=== PATIENT | female | born 1960 | race African-American/Black ===

== ENCOUNTER 2021-10-06 13:31 | Inpatient (IN) | payer MEDICAID ==
[~2021-10-06] VITALS: Ht 157.5 cm; Wt 81.2 kg
[2021-10-06] MEDS ORDERED: ACETAMINOPHEN 325MG TABLET PO ONE (13:45)
[2021-10-06 14:58] LABS: BASOPHILS % 0.6 % (0.0-2.0); EOSINOPHILS % 0.8 % (0.0-5.0); HEMATOCRIT. 44.8 % (36.0-48.0); HEMOGLOBIN. 14.3 g/dL (12.0-16.0); LYMPHOCYTES % 46.5 % (20.0-50.0); MEAN CORPUSCULAR HEMOGLOBIN 24.5 pg (28.0-32.0); MEAN CORPUSCULAR VOLUME 76.9 fL (81.0-99.0); MEAN PLATELET VOLUME 7.5 fl (7.4-10.4); MONOCYTES % 6.1 % (2.0-8.0); PLATELET 322 x1000/uL (130-400); RED BLOOD CELL COUNT 5.83 mill/uL (4.2-5.4)
[2021-10-06 15:04] LABS: CHLORIDE 99 mEq/L (98-107)
[2021-10-06] MEDS ORDERED: IBUP-2029 MT (18:10)
[2021-10-07] MEDS ORDERED: ACETAMINOPHEN 325MG TABLET PO SCH (06:15)
[2021-10-07] MEDS ORDERED: NALOXONE HCL 0.4MG/ML VIAL IV PRN (08:45)
[2021-10-07] MEDS ORDERED: ONDANSETRON HCL 4MG/2ML INJ IV PRN (08:45)
[2021-10-07] MEDS ORDERED: ACETAMINOPHEN 325MG TABLET PO PRN (08:45)
[2021-10-07 12:00] VITALS: BP 153/53
[2021-10-07 12:27] VITALS: BP 153/53
[2021-10-07 16:00] VITALS: BP 161/49
[2021-10-07] MEDS: HYDROCODONE/ACETAMINOPHEN 5/325MG TABLET PO PRN (19:36)
[2021-10-07 20:00] VITALS: BP_SYST 120; BP_SYST 167; BP_DIAS 60
[2021-10-08] VITALS: BP 120/60
[2021-10-08 04:00] VITALS: BP 170/59
[2021-10-08] MEDS: HYDROCODONE/ACETAMINOPHEN 5/325MG TABLET PO PRN ×2 (04:11→09:36)
[2021-10-08 08:00] VITALS: BP 153/59
[2021-10-08 12:00] VITALS: BP 151/48
[2021-10-08 13:34] VITALS: BP 151/48
[2021-10-09] MEDS ORDERED: LISINOPRIL 10MG TABLET PO SCH (09:00)
== END 2021-10-08 15:30 | disposition home or self-care (01) | DRG 342 ==
LOC: ER 13:49 → MICUSO 22:02 → 8WST 10-07 10:03
PROVIDERS: ADMIT Internal Medicine; ATTEND Internal Medicine
PROC: 0HQ1XZZ Repair Face Skin, External Approach (ICD-10-PCS; principal; 2021-10-06)
PROC: 0HQ1XZZ Repair Face Skin, External Approach (ICD-10-PCS; 2021-10-06)
PROC: 0HQ1XZZ Repair Face Skin, External Approach (ICD-10-PCS; 2021-10-06)
PROC: 0HQ1XZZ Repair Face Skin, External Approach (ICD-10-PCS; 2021-10-06)
PROC: 0QSJXZZ Reposition Right Fibula, External Approach (ICD-10-PCS; 2021-10-06)
DX: S82.61XA Displaced fracture of lateral malleolus of right fibula, initial encounter for closed fracture (principal); G90.8 Other disorders of autonomic nervous system; E11.9 Type 2 diabetes mellitus without complications; S01.21XA Laceration without foreign body of nose, initial encounter; S01.112A Laceration without foreign body of left eyelid and periocular area, initial encounter; E66.9 Obesity, unspecified; I10 Essential (primary) hypertension; S01.412A Laceration without foreign body of left cheek and temporomandibular area, initial encounter; Z20.822 Contact with and (suspected) exposure to COVID-19; W07.XXXA Fall from chair, initial encounter; S01.411A Laceration without foreign body of right cheek and temporomandibular area, initial encounter; Y93.89 Activity, other specified; Y92.89 Other specified places as the place of occurrence of the external cause; Y99.8 Other external cause status; Z83.3 Family history of diabetes mellitus; Z88.6 Allergy status to analgesic agent; Z68.32 Body mass index [BMI] 32.0-32.9, adult; Z71.3 Dietary counseling and surveillance
CPT/HCPCS: 36415; 71045; 73610; 80053; 82962; 83036; 83880; 84484; 85025; 87426; 93005; 93306; 93880; 97116; 97161; 99285

== ENCOUNTER 2024-01-11 19:07 | Emergency (ER) | payer MEDICAID ==
[~2024-01-11] VITALS: Ht 154.9 cm; Wt 82.0 kg
[~2024-01-11 19:07] MED LIST: IBUP-2029 MT
[2024-01-11 19:09] VITALS: BP 180/53; PULSE 63; RESP 16; TEMP 98.6; O2SAT 100
== END 2024-01-11 23:09 | disposition left against medical advice (07) ==
LOC: ER 19:07
DX: R42 Dizziness and giddiness (principal); Z53.21 Procedure and treatment not carried out due to patient leaving prior to being seen by health care provider
CPT/HCPCS: 99281